=== PATIENT | female | born 1965 | race Caucasian/White ===

== ENCOUNTER 2020-04-27 14:56 | Outpatient (REF) | payer SELFPAY ==
[2020-04-27 15:48] LABS: SARS COV2 IgG Negative (Negative)
== END 2020-04-27 14:57 | disposition home or self-care (01) ==
LOC: HO.LNC 14:56
PROVIDERS: Visit Provider Pathology Anatomic Pathology & Clinical Pathology
DX: Z01.84 Encounter for antibody response examination (principal)
CPT/HCPCS: 86769

== ENCOUNTER 2020-10-01 01:55 | Day surgery (SDC) | payer OTHER, SELFPAY ==
[2020-10-01] VITALS (9 sets, daily range): BP systolic 120–140; BP diastolic 65–87; PULSE 60–80; RESP 15–17; TEMP 36.1–37; O2SAT 92–99; BMI 35.9
--- NOTE | ~2020-10-01 | CT_ITS ---
EXAMINATION: CT ABDOMEN AND PELVIS WITH CONTRAST CLINICAL INFORMATION: Right lower quadrant pain COMPARISON: None TECHNIQUE: Multidetector volumetric images were obtained from the superior aspect of the liver through the pubic symphysis following administration 85 mL of Omnipaque 350 intravenous contrast. Sagittal and coronal reformatted images were obtained on the technologist's workstation. Oral contrast: No This CT examination was performed using dose optimization techniques as appropriate, variously including the following: *Automated exposure control *Adjustment of mA and/or kV according to patient size (this includes techniques or standardized protocols for targeted exams where dose is matched to indication/reason for exam; i.e. extremities or head) *Use of iterative reconstruction technique DLP: 806 mGy-cm FINDINGS: LUNG BASES: The visualized lung bases are unremarkable. LIVER, GALLBLADDER, AND BILIARY TREE: The liver is normal in size, shape, and attenuation. No focal hepatic lesion or biliary ductal dilatation is present. The gallbladder is unremarkable with no evidence of radiopaque gallstones, gallbladder wall thickening, or obvious pericholecystic inflammatory changes. PANCREAS: Unremarkable. SPLEEN: Unremarkable. ADRENAL GLANDS: Unremarkable. KIDNEYS AND URETERS: The kidneys are normal in size, shape, and attenuation. No hydronephrosis, hydroureter, or obstructing calculi seen. No perinephric stranding. BLADDER: Unremarkable. GASTROINTESTINAL TRACT: No evidence of bowel obstruction. No significant bowel wall thickening is seen. The appendix is mildly dilated to 9 mm at the tip, and there is mild periappendiceal stranding. No free fluid or free air is seen. ABDOMINAL WALL: No significant hernia is appreciated. LYMPH NODES: Normal. VASCULAR: Mild scattered atherosclerotic calcifications. PELVIC VISCERA: The uterus is prominent in size, suspicious for underlying fibroids. OSSEOUS STRUCTURES: Unremarkable. CT/CT abdomen pelvis w con IMPRESSION: 1. Mildly dilated appendix with mild periappendiceal stranding, concerning for mild/early changes of acute appendicitis in the setting of right lower quadrant pain. 2. Prominent uterus likely secondary to fibroids, which could be further assessed with pelvic ultrasound.
--- NOTE | 2020-10-01 02:35 | ED_ITS ---
HPI - Abdominal Pain General Chief Complaint: Abdominal Pain Stated Complaint: Abdominal Pain Time Seen by Provider: 10/01/20 02:13 Source: patient Mode of arrival: ambulatory History of Present Illness HPI narrative: This is a 55-year-old female without significant past medical history who presents with 10 hours of right lower quadrant discomfort that she describes as sharp/crampy, nonradiating that has worsened throughout the day and is not improved despite taking multiple Gas-X pills. Patient denies any past surgical history in the abdomen, denies any fevers, chills but has been mildly nauseous and had decreased appetite. She had a regular bowel movement this morning and has continued to pass flatus and denies any urinary pain /burning/frequency. Pain increases with flexion at hips. Related Data Allergies Allergy/AdvReac Type Severity Reaction Status Date / Time No Known Allergies Allergy Mild NONE Unverified 01/12/20 16:21 ChloraPrep One Step Allergy Unknown Uncoded 03/16/17 00:00 Latex Gloves Allergy Unknown rash Uncoded 03/16/17 00:00 Review of Systems Review of Systems Pertinent positives and negatives as stated in HPI 10 point review of systems is otherwise negative. Physical Exam Vital Signs: Vital Signs: Last Vital Signs Temp 98.2 F 10/01/20 02:57 Pulse 76 10/01/20 02:57 Resp 16 10/01/20 02:57 BP 120/65 10/01/20 02:57 Pulse Ox 97 10/01/20 02:57 Body Mass Index 35.9 VITAL SIGNS: Reviewed. GENERAL: Well developed, well nourished, in no acute distress. HEAD: Normocephalic/atraumatic EYES: PERRLA, EOMI OROPHARYNX: no oral lesions noted, posterior pharynx clear NECK: Supple, no adenopathy LUNGS: Normal breath sounds, no wheeze/rhonchi/rales, no tachypnea CARDIOVASCULAR: Regular rate and rhythm without noted murmurs ABDOMEN: Soft, tenderness to palpation the right lower quadrant without rebound, McBurney's positive, non-distended with bowel sounds. MUSCULOSKELETAL: No tenderness, deformities, or effusions noted on gross inspection. SKIN: Inspection of the skin reveals no rashes NEUROLOGIC: Alert and oriented x 4. Course Course Course Narrative: This is a 55-year-old female with history and clinical presentation most consistent with appendicitis but will rule out renal colic, diverticulitis, UTI. Review of all investigations consistent with appendicitis, surgical services contacted, also of note CT scan findings of enlarged uterus which will require further investigations with ultrasound. MDM - Abdominal Pain Lab Data Result diagrams: 10/01/20 03:11 10/01/20 03:11 Labs: Lab Results 10/01/20 10/01/20 10/01/20 Range/Units 03:11 03:11 03:14 WBC 11.1 H (4.8-10.8) X10*3/uL RBC 3.86 L (4.20-5.50) X10*6/uL Hgb 11.4 L (12.0-16.0) g/dl Hct 34.7 L (37-47) % MCV 89.9 (80-98) fL MCH 29.5 (27.0-33.0) pg MCHC 32.9 (31.0-35.0) g/dl RDW 13.5 (11.0-16.0) % Plt Count 408 H (160-400) X10*3/uL MPV 9.9 (9.4-12.3) fL Immature Gran % (Auto) 0.3 (0.0-0.4) % Neut % (Auto) 69.1 (45-73) % Lymph % (Auto) 19.8 L (20-40) % [place] % (Auto) 8.7 (2-11) % Eos % (Auto) 1.5 (0-4) % Baso % (Auto) 0.6 (0-2) % Lymph # (Auto) 2.2 (1.2-4.9) X10*3/uL [place] # (Auto) 1.0 (0.1-1.2) X10*3/uL Eos # (Auto) 0.2 (0.0-0.4) X10*3/uL Baso # (Auto) 0.1 (0.0-0.2) X10*3/uL Abs Immat Gran (auto) 0.03 (0.00-0.03) X10*3/uL Absolute Neuts (auto) 7.7 (2.0-8.3) X10*3/uL Absolute Nucleated RBC 0.000 (0.0-0.012) X10*3/uL Nucleated RBC % (auto) 0.0 (0.0-0.2) /100WBC Sodium 141 (135-145) mmol/L Potassium 4.3 (3.3-5.1) mmol/L Chloride 108 (96-108) mmol/L Carbon Dioxide 25 (22-29) mmol/L Anion Gap 12 (12-20) BUN 11 (9-16) mg/dL Creatinine 0.84 (0.5-1.4) mg/dL Estim Creat Clear Calc 86.4 Estimated GFR > 60 Random Glucose 99 (60-115) mg/dL Calcium 9.4 (8.4-10.2) mg/dL Total Bilirubin 0.5 (0.0-1.0) mg/dL AST 9 (5-31) U/L ALT 7 (0-31) U/L Alkaline Phosphatase 89 (39-117) U/L Total Protein 6.8 (6.5-8.0) g/dL Albumin 4.2 (3.5-5.0) g/dL Lipase 20 (8-78) U/L Urine Color YELLOW Urine Appearance CLEAR Urine pH 6.0 (5.0-8.0) Ur Specific [place] 1.010 (1.005-1.025) Urine Protein NEG (NEG-TRACE) MG/DL Urine Glucose (UA) NEG (NEG) MG/DL Urine Ketones NEG (NEG) MG/DL Urine Blood 2+ H (NEG) Urine Nitrite NEG (NEG) Ur Leukocyte Esterase NEG (NEG) Urine RBC 0-2 (0) /HPF Urine WBC 0-2 (0-4) /HPF Ur Squamous Epith Cells TRACE /LPF Urine Bacteria NONE /LPF Discharge Plan Discharge Clinical Impression: Acute appendicitis Patient Disposition: Admitted As Inpatient [facility] Past Medical History Source: nursing notes reviewed Social History Social History Alcohol intake: never Patient Tobacco Use Status: Never used Tobacco Use of substances other than those prescribed or required for medical reasons: No Advance Directives: No Advance Directives Information Provided: Yes Patient : No
[2020-10-01 03:15] LABS: MANUAL DIFF FLAG NO
[2020-10-01 03:16] LABS: Basophils Absolute Auto 0.1 X10*3/uL (0.0-0.2); Basophils Percent Auto 0.6 % (0-2); Eosinophils Absolute Auto 0.2 X10*3/uL (0.0-0.4); Eosinophils Percent Auto 1.5 % (0-4); Hematocrit 34.7 % (37-47); Hemoglobin 11.4 g/dl (12.0-16.0); Imm Gran Abs Auto 0.03 X10*3/uL (0.00-0.03); Imm Gran Pct Auto 0.3 % (0.0-0.4); Lymphocytes Absolute Auto 2.2 X10*3/uL (1.2-4.9); Lymphocytes Percent Auto 19.8 % (20-40); Mean Corpuscular HGB Conc 32.9 g/dl (31.0-35.0); Mean Corpuscular Hemoglobin 29.5 pg (27.0-33.0); Mean Corpuscular Volume 89.9 fL (80-98); Mean Platelet Volume 9.9 fL (9.4-12.3); Monocytes Percent Auto 8.7 % (2-11); Neutrophils Absolute Auto 7.7 X10*3/uL (2.0-8.3); Neutrophils Percent Auto 69.1 % (45-73); Platelet Count 408 X10*3/uL (160-400); Red Blood Count 3.86 X10*6/uL (4.20-5.50); Red Cell Distribution Width 13.5 % (11.0-16.0); White Blood Count 11.1 X10*3/uL (4.8-10.8)
[2020-10-01] MEDS: 0.9 % Sodium Chloride 1,000 ML 999 ML IV (03:16)
[2020-10-01] MEDS: Ketorolac Tromethamine 15 MG/ML VIAL IVPUSH (03:16)
[2020-10-01 03:20] LABS: Appearance Urine CLEAR; Color Urine YELLOW; Glucose Urine UA NEG (NEG); Leukocyte Esterase Urine NEG (NEG); Nitrite Urine NEG (NEG); Urine Blood 2+ (NEG); Urine Ketones NEG (NEG); Urine Protein NEG (NEG-TRACE)
--- NOTE | 2020-10-01 03:24 | PC.NURSE ---
Iv access obtained to left ac. Labs drawn and sent, results pending. Iv fluids hung and running wo as charted per JUN. Pt denies pain at this time, medicated with iv toradol. Pt reports pain on movement. Skin wd, resp reg and even. Pt denies any other GI sx at this time.
[2020-10-01 03:27] LABS: RBC Urine 0-2 /HPF (0); Squamous Epithelial Cell Urine TRACE /LPF; WBC Urine 0-2 /HPF (0-4)
[2020-10-01 03:46] LABS: Alanine Aminotransferase 7 U/L (0-31); Albumin Level 4.2 g/dL (3.5-5.0); Alkaline Phosphatase 89 U/L (39-117); Anion Gap 12 (12-20); Aspartate Amino Transferase 9 U/L (5-31); Bilirubin Total 0.5 mg/dL (0.0-1.0); Blood Urea Nitrogen 11 mg/dL (9-16); Calcium 9.4 mg/dL (8.4-10.2); Carbon Dioxide 25 mmol/L (22-29); Chloride 108 mmol/L (96-108); Creatinine Clr Calc Pharmacy 86.4; Estimated Glomerular Filt Rate > 60; Glucose Random 99 mg/dL (60-115); Lipase 20 U/L (8-78); Potassium 4.3 mmol/L (3.3-5.1); Sodium 141 mmol/L (135-145); Total Protein 6.8 g/dL (6.5-8.0)
[2020-10-01] MEDS: iohexoL 350 MG/ML 100 ML INFUS..BTL 85 ML IV (04:13)
[2020-10-01 05:22] LABS: COVID-19 Test Negative (Negative); IDNOW Serial# 9DD0AD1C
[2020-10-01] MEDS: Piperacillin Sodium/Tazobactam 3.375 GM in 0.9 % Sodium Chloride 50 ML IV ×2 (06:07→12:52)
--- NOTE | 2020-10-01 09:34 | PC.NURSE ---
report to felix duron from day stay surgery, plan to pick pt up around 1130a.
--- NOTE | 2020-10-01 10:34 | HO.ANESPROP2 ---
[facility] Active Problems Active Problems: All Active Problems (Updated 10/01/20 @ 04:59 by Marianne Weber MD) Acute appendicitis (Acute) Past Medical History Medical History (Updated 10/01/20 @ 11:05 by Christina Borden MD) Anxiety Depression History of right breast cancer Family History Family History (Updated 10/01/20 @ 11:33 by Christina Borden MD) Mother Heart disease Stroke Father Skin cancer Brother No problems noted. Brother No problems noted. Brother No problems noted. Maternal Grandmother Breast cancer Paternal Grandmother Colon cancer Paternal Grandfather Heart disease Stroke Surgical History Surgical History (Updated 10/01/20 @ 11:05 by Christina Borden MD) H/O hand surgery History of tonsillectomy Status post right breast lumpectomy Social History Social History Alcohol intake: never Patient Tobacco Use Status: Never used Tobacco Meds Allergies Allergy/AdvReac Type Severity Reaction Status Date / Time ChloraPrep One Step Allergy Intermediate Rash Uncoded 10/01/20 11:05 Latex Gloves Allergy Unknown rash Uncoded 10/01/20 11:05 Active Medications: Current Medications Generic Name Dose Route Start Last Admin Trade Name Freq PRN Reason Stop Dose Admin Acetaminophen 650 mg 10/01/20 05:17 Acetaminophen 325 Mg Tablet PO Q4H PRN Fever Diphenhydramine HCl 25 mg 10/01/20 05:17 Diphenhydramine Hcl 25 Mg Tablet PO Q4H PRN itching Piperacillin Sod/Tazobactam 50 mls @ 100 mls/hr 10/01/20 05:30 10/01/20 06:07 Sod 3.375 gm/ Sodium Chloride IV 100 mls/hr Q6H HU Administration Sodium Chloride 1,000 mls @ 125 mls/hr 10/01/20 05:30 Ns IVCONT .Q8H HU Morphine Sulfate 2 mg 10/01/20 05:17 Morphine Sulfate 2 Mg/Ml Cartridge IVPUSH Q3H PRN Pain, Moderate (Pain Scale 4-6 Morphine Sulfate 4 mg 10/01/20 05:17 Morphine Sulfate 4 Mg/Ml Cartridge IVPUSH Q3H PRN Pain, Severe (Pain Scale 7-10) Ondansetron HCl 4 mg 10/01/20 05:17 Ondansetron Hcl 4 Mg/2 Ml Vial IVPUSH Q4H PRN Nausea Oxycodone HCl 5 mg 10/01/20 05:17 Oxycodone Hcl Immed Release 5 Mg Tablet PO Q3H PRN Pain, Moderate (Pain Scale 4-6 Oxycodone HCl 10 mg 10/01/20 05:17 Oxycodone Hcl Immed Release 5 Mg Tablet PO Q3H PRN Pain, Severe (Pain Scale 7-10) Sodium Chloride 3 ml 10/01/20 08:00 0.9 % Sodium Chloride Flush 3 Ml Syringe IVFLUSH [facility] Home Medications Medication Instructions Recorded Confirmed Last Taken Type ascorbic acid (vitamin C) [Vitamin 500 mg PO 2XW 10/01/20 10/01/20 09/27/20 History C] cholecalciferol (vitamin D3) 50 mcg PO DAILY 10/01/20 10/01/20 09/30/20 History [Vitamin D3] ferrous sulfate 27 mg PO 2XW 10/01/20 10/01/20 09/27/20 History loperamide 2 mg PO 2XW 10/01/20 10/01/20 09/27/20 History venlafaxine 25 mg PO DAILY 10/01/20 10/01/20 09/30/20 History venlafaxine 37.5 mg PO DAILY 10/01/20 10/01/20 09/30/20 History Exam Exam Date and Time: October 01, 2020 1034 Height,Weight and Vital Signs: Height 5 ft 4 in Weight 94.8 kg Last Vital Signs Temp 98.2 F 10/01/20 07:55 Pulse 69 10/01/20 07:55 Resp 16 10/01/20 07:55 BP 124/74 10/01/20 07:55 Pulse Ox 99 10/01/20 07:55 Pertinent Lab Results Pertinent Lab Results: Laboratory Tests 10/01/20 10/01/20 10/01/20 03:11 03:11 03:14 WBC 11.1 H RBC 3.86 L Hgb 11.4 L Hct 34.7 L MCV 89.9 MCH 29.5 MCHC 32.9 RDW 13.5 Plt Count 408 H MPV 9.9 Immature Gran % (Auto) 0.3 Neut % (Auto) 69.1 Lymph % (Auto) 19.8 L [place] % (Auto) 8.7 Eos % (Auto) 1.5 Baso % (Auto) 0.6 Lymph # (Auto) 2.2 [place] # (Auto) 1.0 Eos # (Auto) 0.2 Baso # (Auto) 0.1 Abs Immat Gran (auto) 0.03 Absolute Neuts (auto) 7.7 Absolute Nucleated RBC 0.000 Nucleated RBC % (auto) 0.0 Sodium 141 Potassium 4.3 Chloride 108 Carbon Dioxide 25 Anion Gap 12 BUN 11 Creatinine 0.84 Estim Creat Clear Calc 86.4 Estimated GFR > 60 Random Glucose 99 Calcium 9.4 Total Bilirubin 0.5 AST 9 ALT 7 Alkaline Phosphatase 89 Total Protein 6.8 Albumin 4.2 Lipase 20 Urine Color YELLOW Urine Appearance CLEAR Urine pH 6.0 Ur Specific [place] 1.010 Urine Protein NEG Urine Glucose (UA) NEG Urine Ketones NEG Urine Blood 2+ H Urine Nitrite NEG Ur Leukocyte Esterase NEG Urine RBC 0-2 Urine WBC 0-2 Ur Squamous Epith Cells TRACE Urine Bacteria NONE COVID-19 ([facility]ERT) COVID-19 [employer] Com 10/01/20 05:03 WBC RBC Hgb Hct MCV MCH MCHC RDW Plt Count MPV Immature Gran % (Auto) Neut % (Auto) Lymph % (Auto) [place] % (Auto) Eos % (Auto) Baso % (Auto) Lymph # (Auto) [place] # (Auto) Eos # (Auto) Baso # (Auto) Abs Immat Gran (auto) Absolute Neuts (auto) Absolute Nucleated RBC Nucleated RBC % (auto) Sodium Potassium Chloride Carbon Dioxide Anion Gap BUN Creatinine Estim Creat Clear Calc Estimated GFR Random Glucose Calcium Total Bilirubin AST ALT Alkaline Phosphatase Total Protein Albumin Lipase Urine Color Urine Appearance Urine pH Ur Specific [place] Urine Protein Urine Glucose (UA) Urine Ketones Urine Blood Urine Nitrite Ur Leukocyte Esterase Urine RBC Urine WBC Ur Squamous Epith Cells Urine Bacteria COVID-19 ([facility]) Negative COVID-19 Clin Com See Note Airway Mallampati Class: II (Caps lateral) TM Dist: >3cm Neck ROM: Full Heart: RRR Lungs: CTa Assessment and Plan Assessment Anesthesia Assessment: Anesthesia Plan Discussed and Chart Reviewed Final Anesthetic Review NPO: Yes ASA Class: II Final Preanesthetic Review: No Changes in Pt Med Stat and Consent Obtained/Reviewed Patient Risk: Intermediate Procedure Risk: Intermediate Anesthetic Plan Anesthetic Plan: GA Disposition: Standard PACU
--- NOTE | 2020-10-01 10:59 | P.HPGS_ITS ---
History of Present Illness History of Present Illness Date of Service: 10/01/20 Chief complaint: Abdominal Pain Narrative: Mone Manjarrez is a 55 year old female who was in her usual state health until around 11 a.m. yesterday morning when she developed an upset stomach with periumbilical discomfort. She reports that the pain localized to the right lower quadrant around 3 p.m. and was 8/10 on a pain scale at its worst. She denied any exacerbating or alleviating factors. Her last meal was yesterday afternoon at 4 p.m.. She denies any change in bowel habits, any urinary symptoms, fever, chills, shortness of breath, chest pain. She denies any history of pain of this sort previously. She reports her pain is now 1/10 after receiving pain medications. She denied any nausea or vomiting. Patient was evaluated in the emergency department and found to have white blood cell count of 11.1. She had a CT scan abdomen and pelvis that showed a mildly dilated appendix with mild periappendiceal stranding concerning for acute early appendicitis. Review of Systems Review of Systems: Yes all other systems are reviewed and are negative Constitutional: Constitutional: Denies chills, Denies daytime sleepiness, Denies difficulty sleeping, Denies excessive sweating, Reports fatigue, Denies fever(s), Denies headache(s), Denies night sweats, Reports snoring, Denies stops breathing during sleep and Denies weakness Eyes: Eyes: Denies blurry vision, Denies other visual disturbances and Reports requires corrective lenses ENT: Denies bleeding gums, Denies dysphagia, Denies dizziness, Denies headache(s), Denies hearing loss, Denies sinus pain and Denies sore throat Cardiovascular: Cardiovascular: Denies chest pain, Denies chest pain at rest, Denies chest pain with activity, Denies syncope, Denies irregular heart rhythm, Denies leg edema, Denies lightheadedness, Denies dyspnea, Denies dyspnea on exertion and Denies orthopnea Respiratory: Respiratory: Denies chest congestion, Denies cough, Denies dyspnea, Denies dyspnea on exertion, Reports snoring and Denies wheezing Gastrointestinal: Gastrointestinal: Denies abdominal pain, Denies melena, Denies bloating, Denies constipation, Denies dysphagia, Denies heartburn, Denies diarrhea, Denies nausea and Denies vomiting Genitourinary: Genitourinary: Denies hematuria, Denies nocturia and Denies nipple discharge Musculoskeletal: Musculoskeletal: Denies abnormal gait, Denies back pain, Denies deformity, Reports arthralgias, Denies joint swelling and Denies stiffness Integumentary/Breasts: Skin/Breast: Denies breast pain, Denies breast mass and Denies nipple discharge Neurologic: Denies abnormal gait, Denies dizziness, Denies syncope, Denies headache(s), Denies seizure-like activity and Denies weakness Psychiatric: Psychiatric: Denies abnormal sleep pattern, Reports anxiety, Reports depression and Denies panic attacks Endocrine: Endocrine: Denies excessive sweating, Reports fatigue, Denies heat intolerance, Denies polyphagia, Denies polydipsia and Denies polyuria Hematologic/Lymphatic: Hematologic/Lymphatic: Denies easy bleeding and Denies easy bruising Allergic/Immunologic: Allergic/Immunologic: Denies wheezing PMFSH Past Medical History Medical History (Updated 10/01/20 @ 11:05 by Christina Borden MD) Anxiety Depression History of right breast cancer Family History Family History (Updated 10/01/20 @ 11:33 by Christina Borden MD) Mother Heart disease Stroke Father Skin cancer Brother No problems noted. Brother No problems noted. Brother No problems noted. Maternal Grandmother Breast cancer Paternal Grandmother Colon cancer Paternal Grandfather Heart disease Stroke Surgical History Surgical History (Updated 10/01/20 @ 11:05 by Christina Borden MD) H/O hand surgery History of tonsillectomy Status post right breast lumpectomy Social History Social History Alcohol intake: never Patient Tobacco Use Status: Never used Tobacco Use of substances other than those prescribed or required for medical reasons: No Advance Directives: No Advance Directives Information Provided: Yes Patient : No Meds Allergies Allergy/AdvReac Type Severity Reaction Status Date / Time No Known Allergies Allergy Mild NONE Unverified 10/01/20 11:05 ChloraPrep One Step Allergy Intermediate Rash Uncoded 10/01/20 11:05 Latex Gloves Allergy Unknown rash Uncoded 10/01/20 11:05 Active Medications: Current Medications Generic Name Dose Route Start Last Admin Trade Name Freq PRN Reason Stop Dose Admin Acetaminophen 650 mg 10/01/20 05:17 Acetaminophen 325 Mg Tablet PO Q4H PRN Fever Diphenhydramine HCl 25 mg 10/01/20 05:17 Diphenhydramine Hcl 25 Mg Tablet PO Q4H PRN itching Piperacillin Sod/Tazobactam 50 mls @ 100 mls/hr 10/01/20 05:30 10/01/20 06:07 Sod 3.375 gm/ Sodium Chloride IV 100 mls/hr Q6H [facility] Administration Sodium Chloride 1,000 mls @ 125 mls/hr 10/01/20 05:30 Ns IVCONT .Q8H HU Morphine Sulfate 2 mg 10/01/20 05:17 Morphine Sulfate 2 Mg/Ml Cartridge IVPUSH Q3H PRN Pain, Moderate (Pain Scale 4-6 Morphine Sulfate 4 mg 10/01/20 05:17 Morphine Sulfate 4 Mg/Ml Cartridge IVPUSH Q3H PRN Pain, Severe (Pain Scale 7-10) Ondansetron HCl 4 mg 10/01/20 05:17 Ondansetron Hcl 4 Mg/2 Ml Vial IVPUSH Q4H PRN Nausea Oxycodone HCl 5 mg 10/01/20 05:17 Oxycodone Hcl Immed Release 5 Mg Tablet PO Q3H PRN Pain, Moderate (Pain Scale 4-6 Oxycodone HCl 10 mg 10/01/20 05:17 Oxycodone Hcl Immed Release 5 Mg Tablet PO Q3H PRN Pain, Severe (Pain Scale 7-10) Sodium Chloride 3 ml 10/01/20 08:00 0.9 % Sodium Chloride Flush 3 Ml Syringe IVFLUSH [facility] Home Medications Medication Instructions Recorded Confirmed Last Taken Type ascorbic acid (vitamin C) [Vitamin 500 mg PO 2XW 10/01/20 10/01/20 09/27/20 Hist ory C] cholecalciferol (vitamin D3) 50 mcg PO DAILY 10/01/20 10/01/20 09/30/20 History [Vitamin D3] ferrous sulfate 27 mg PO 2XW 10/01/20 10/01/20 09/27/20 History loperamide 2 mg PO 2XW 10/01/20 10/01/20 09/27/20 History venlafaxine 25 mg PO DAILY 10/01/20 10/01/20 09/30/20 History venlafaxine 37.5 mg PO DAILY 10/01/20 10/01/20 09/30/20 History Physical Exam Vital Signs: Vital Signs: Last Vital Signs Temp 98.2 F 10/01/20 07:55 Pulse 69 10/01/20 07:55 Resp 16 10/01/20 07:55 BP 124/74 10/01/20 07:55 Pulse Ox 99 10/01/20 07:55 Body Mass Index 35.9 Const: Other: Wearing glasses General: cooperative, healthy appearing, comfortable, no acute distress and well developed Nutritional Appearance: obese Orientation/consciousness: patient oriented x3 Limitations: no limitations HENMT: Head: Yes normal to inspection, Yes normocephalic and Yes atraumatic Mouth: oropharynx normal and moist mucous membranes Eyes: General: appearance normal, both eyes and all related structures Sclerae: sclerae normal EOM: EOMs intact bilaterally Neck: Neck: Yes normal visual inspection, Yes full ROM and Yes no lymphadenopathy Thyroid: Thyroid normal Chest: Chest palpation & inspection: normal inspection of the chest Resp: Effort & Inspection: normal respiratory effort and able to speak in complete sentences Auscultation: clear to auscultation bilaterally, no crackles, no rales, no rhonchi and no wheezes Cardio: Rate: regular rate Heart sounds: S1 normal heart sound present and S2 normal heart sound present GI: Other: Abdomen is obese, soft, mildly distended. There is tenderness to palpation in the suprapubic region and right lower quadrant with mild voluntary guarding. There is no rebound tenderness. Inspection: Yes obesity Palpation (GI): Soft to palpation, Tenderness to palpation present (GI), no guarding and no hernias Rectal Exam - Female: deferred Skin: General skin exam: no rashes or lesions noted and no jaundice Wounds: no wounds Hair: normal Nails: normal Neuro: General: patient oriented x3 Cranial nerves: Yes CN's II-XII intact bilaterally Cognition (Neuro): normal cognition Gait exam (Neuro): Normal gait present Extrem: General: Yes normal to inspection, Yes full ROM, Yes no clubbing, cyanosis or edema and Yes no calf tenderness Psych: Appearance: grossly normal Mental Status: mental status grossly normal Speech and movement: Normal speech and movement present Affect: normal affect Attitude: cooperative Thought process: Normal thought process present Thought content: Normal thought content present Insight: Good insight present (Psych) Judgement: Good judgement present (Psych) Results Results Labs: Short CBC 10/01/20 Range/Units 03:11 WBC 11.1 H (4.8-10.8) X10*3/uL Hgb 11.4 L (12.0-16.0) g/dl Hct 34.7 L (37-47) % Plt Count 408 H (160-400) X10*3/uL BMP 10/01/20 03:11 Sodium 141 Potassium 4.3 Chloride 108 Carbon Dioxide 25 BUN 11 Creatinine 0.84 Calcium 9.4 Liver Function 10/01/20 Range/Units 03:11 Total Bilirubin 0.5 (0.0-1.0) mg/dL AST 9 (5-31) U/L ALT 7 (0-31) U/L Alkaline Phosphatase 89 (39-117) U/L Albumin 4.2 (3.5-5.0) g/dL Urine 10/01/20 Range/Units 03:14 Urine Color YELLOW Urine Appearance CLEAR Urine pH 6.0 (5.0-8.0) Ur Specific [place] 1.010 (1.005-1.025) Urine Protein NEG (NEG-TRACE) MG/DL Urine Glucose (UA) NEG (NEG) MG/DL Assessment and Plan (1) Acute appendicitis: Status: Acute This is a 55-year-old lady who was previously healthy who developed relatively acute onset of periumbilical discomfort which localized to the right lower quadrant several hours later. Patient had a CT scan that shows inflammatory changes about the appendix and a slightly elevated white blood cell count. Patient has acute appendicitis given history physical exam radiologic studies and blood work. The patient will be taken to the operating room for laparoscopic possible open appendectomy. Risks benefits and alternatives were discussed with the patient and she agrees to proceed. Procedures Date of Service Date of Service: 10/01/20
--- NOTE | 2020-10-01 14:08 | P.BOP_ITS ---
Brief Operative Note Date of Service: 10/01/20 Pre-op diagnosis: Acute appendicitis Post-op diagnosis: same Procedure: Laparoscopic appendectomy Implants: covidien erasmo Surgeon: Christina Borden MD Anesthesia: GETA Was an Assistant Director Of Public Works used for this Procedure?: No Estimated blood loss (mL): 2 Pathology: other (Appendix) Condition: stable Disposition: PACU
--- NOTE | 2020-10-01 14:11 | P.OP_ITS ---
Operative Note Operative Note Date of Service: 10/01/20 Narrative: Patient was brought into the operating room, placed on operating room table in a supine position. General anesthesia was induced. The patient received 3.375 g of IV Zosyn preoperatively. Normal DVT prophylaxis was instit uted. Safety time-out was performed. The abdomen was prepped and draped in normal sterile fashion using ChloraPrep. Next a mixture of 1% lidocaine with epinephrine 0.25% Marcaine plain was used to anesthetize the planned incision site in the infraumbilical position. A number 11 scalpel used to make a 2 cm infraumbilical transverse surgical incision through which the subcutaneous tissues were dissected down to the level of the fascia. The fascia was grasped between 2 Amy clamps and entered for about 1 cm. A 11. Scalpel used to cut the fascia. A 0 Vicryl suture was placed on either side of the opened fascia. A finger was used to bluntly gain access to the intra-abdominal cavity. A 12 mm Kenny trocar was introduced into the abdomen and secured to the abdominal wall using sutures on the fascia. The abdominal cavity was insufflated to 15 mm of mercury. A 5 mm 30 degree laparoscopic was introduced abdomen and used to survey the abdominal cavity which was normal with the exception of a very large uterus. Two additional 5 mm ports were placed under direct vision, 1 in the suprapubic region and 1 in the left lower quadrant under direct vision. The patient was placed in Trendelenburg positioning with the left side tilted down. We visualized the cecum in the right lower quadrant as well as the appendix. We grasped the appendix and dissected it free from the surrounding tissues. We used the LigaSure device to dissect the mesoappendix down at the base of the appendix. We then used a 60 mm white load stapler to staple across the base of the appendix. We placed the appendix in an Endo-Catch bag and removed from the abdomen. We evaluated staple line at the cecum and it was in good condition there was evidence of any bleeding. There was no injury to any of the viscera. We then removed the 5 mm ports from the suprapubic region and the left lower quadrant under direct vision. There was no bleeding from these port sites. We desufflated the abdomen under direct vision and removed the last port and laparoscope. We reapproximated the fascial defect at the umbilicus using a [id number] 0 Vicryl suture and tied the original fascial sutures over that closure. There was no residual fascial defect. We reapproximated all skin incisions with a 4 0 Monocryl subcuticular stitch. We cleaned and dried the skin and applied Dermabond skin glue to all skin incisions. All counts were correct at the end of the case there were no complications. The patient was awake and in stable condition prior to extubation and transfer to recovery room.
--- NOTE | 2020-10-01 14:22 | PM.DS ---
DS: Providers Provider Date of Service: 10/01/20 Date of admission: 10/01/20 05:17 Date of discharge: 10/01/20 Primary care physician: Vicente Wick MD Admitting clinician: Christina Borden Attending physician on admission: Christina Borden Attending physician on discharge: Christina Borden Discharging clinician: Christina Borden DS: Diagnosis Discharge Diagnosis (1) Acute appendicitis: Status: Acute DS: Medications Discharge Medications Home Medications: Home Medications Medication Instructions Recorded Confirmed ascorbic acid (vitamin C) [Vitamin 500 mg PO 2XW 10/01/20 10/01/20 C] cholecalciferol (vitamin D3) 50 mcg PO DAILY 10/01/20 10/01/20 [Vitamin D3] ferrous sulfate 27 mg PO 2XW 10/01/20 10/01/20 loperamide 2 mg PO 2XW 10/01/20 10/01/20 venlafaxine 25 mg PO DAILY 10/01/20 10/01/20 venlafaxine 37.5 mg PO DAILY 10/01/20 10/01/20 Previous Rx's Medication Instructions Recorded acetaminophen 1,000 mg PO Q6H #60 tab 10/01/20 docusate sodium [Colace] 100 mg PO BID #30 cap 10/01/20 oxycodone 5 mg PO Q4H PRN 7 Days #20 tab 10/01/20 DS: Summary Hospital Course Hospital Course: This is a 55-year-old lady who was admitted to the emergency department for right lower quadrant abdominal pain that she began experiencing the day prior to presentation. Patient had sign symptoms and physical exam consistent with acute appendicitis. Patient underwent a CT scan abdomen and pelvis that showed inflamed appendix and periappendiceal fat stranding as well as an increased white blood cell count of 11.1. Patient was taken to the operating room for laparoscopic appendectomy that was uneventful. Patient tolerated procedure well was sent to recovery room. Patient was started on regular diet. Patient was able to tolerate the regular diet and had good pain control and was discharged home later that evening. Time Spent with Patient Time attestation: Total time spent providing and/or coordinating discharge services: Discharge coordination time: Less than 30 minutes Quality: Stroke Does the patient have a stroke diagnosis?: No Physical Exam Vital Signs: Vital Signs: Last Vital Signs Temp 98.6 F 10/01/20 13:56 Pulse 70 10/01/20 14:11 Resp 17 10/01/20 14:11 BP 137/83 10/01/20 14:11 Pulse Ox 96 10/01/20 14:11 Body Mass Index 35.9 DS: Data Data Completed and Pending Pending studies at discharge: Pending at discharge 10/01/20 13:32 Surgical [PTH] Routine Labs on day of discharge: Laboratory Results - last 24 hr 10/01/20 10/01/20 10/01/20 03:11 03:11 03:14 WBC 11.1 H RBC 3.86 L Hgb 11.4 L Hct 34.7 L MCV 89.9 MCH 29.5 MCHC 32.9 RDW 13.5 Plt Count 408 H MPV 9.9 Immature Gran % (Auto) 0.3 Neut % (Auto) 69.1 Lymph % (Auto) 19.8 L [place] % (Auto) 8.7 Eos % (Auto) 1.5 Baso % (Auto) 0.6 Lymph # (Auto) 2.2 [place] # (Auto) 1.0 Eos # (Auto) 0.2 Baso # (Auto) 0.1 Abs Immat Gran (auto) 0.03 Absolute Neuts (auto) 7.7 Absolute Nucleated RBC 0.000 Nucleated RBC % (auto) 0.0 Sodium 141 Potassium 4.3 Chloride 108 Carbon Dioxide 25 Anion Gap 12 BUN 11 Creatinine 0.84 Estim Creat Clear Calc 86.4 Estimated GFR > 60 Random Glucose 99 Calcium 9.4 Total Bilirubin 0.5 AST 9 ALT 7 Alkaline Phosphatase 89 Total Protein 6.8 Albumin 4.2 Lipase 20 Urine Color YELLOW Urine Appearance CLEAR Urine pH 6.0 Ur Specific [place] 1.010 Urine Protein NEG Urine Glucose (UA) NEG Urine Ketones NEG Urine Blood 2+ H Urine Nitrite NEG Ur Leukocyte Esterase NEG Urine RBC 0-2 Urine WBC 0-2 Ur Squamous Epith Cells TRACE Urine Bacteria NONE COVID-19 ([facility]) COVID-19 Clin Com 10/01/20 05:03 WBC RBC Hgb Hct MCV MCH MCHC RDW Plt Count MPV Immature Gran % (Auto) Neut % (Auto) Lymph % (Auto) [place] % (Auto) Eos % (Auto) Baso % (Auto) Lymph # (Auto) [place] # (Auto) Eos # (Auto) Baso # (Auto) Abs Immat Gran (auto) Absolute Neuts (auto) Absolute Nucleated RBC Nucleated RBC % (auto) Sodium Potassium Chloride Carbon Dioxide Anion Gap BUN Creatinine Estim Creat Clear Calc Estimated GFR Random Glucose Calcium Total Bilirubin AST ALT Alkaline Phosphatase Total Protein Albumin Lipase Urine Color Urine Appearance Urine pH Ur Specific [place] Urine Protein Urine Glucose (UA) Urine Ketones Urine Blood Urine Nitrite Ur Leukocyte Esterase Urine RBC Urine WBC Ur Squamous Epith Cells Urine Bacteria COVID-19 ([facility]) Negative COVID-19 Clin Com See Note Discharge Plan Discharge Patient Disposition: Home, Self-Care Discharge Diagnosis: Acute appendicitis Referrals: Vicente Wick MD [Primary Care Provider] - 1 Week Discharge Medications: New acetaminophen 500 mg tablet 1,000 mg PO Q6H Qty: 60 RF: 1 docusate sodium [Colace] 100 mg capsule 100 mg PO BID Qty: 30 RF: 1 oxycodone 5 mg tablet 5 mg PO Q4H PRN (Reason: pain) 7 Days Qty: 20 RF: 0 Continued venlafaxine 37.5 mg capsule,extended release 24hr 37.5 mg PO DAILY RF: 0 loperamide 2 mg Capsule 2 mg PO 2XW RF: 0 venlafaxine 25 mg tablet 25 mg PO DAILY RF: 0 ascorbic acid (vitamin C) [Vitamin C] 500 mg Tablet 500 mg PO 2XW RF: 0 ferrous sulfate 27 mg iron Tablet 27 mg PO 2XW RF: 0 cholecalciferol (vitamin D3) [Vitamin D3] 50 mcg (2,000 unit) Tablet 50 mcg PO DAILY RF: 0 Discharge Orders: Discharge Order (Routine); Ordered 10/01/20 Ordered By: Christina Borden Activity on Discharge: No heavy lifting Stand Alone Forms: Patient Portal Discharge page Activity Restrictions/Additional Instructions: Patient should avoid all heavy lifting greater than 5 lb for the next 2 weeks and all heavy lifting greater than 10 lb for a total of 4 weeks. Patient may shower but should avoid all hot tubs, baths, swimming pools. Patient should follow up with Dr. Borden in 2 weeks time frame and should call the office to schedule that follow-up appointment. The office number is [phone]. Patient should call Dr. Borden office with any questions or concerns such as increasing abdominal pain, fever, chills, shortness of breath, chest pain, leg pain or swelling, worsening nausea or vomiting. Patient she would use stool softener while she is taking oxycodone. If she does not have a bowel movement in 2 days following discharge she should use [id number] MiraLax on a daily basis to help produce a bowel movement or milk of magnesia. Care Plan Goals: Return to baseline health Health Concerns: Appendicitis Plan of Treatment: Appendectomy already performed Assessment: Status post appendectomy for treatment acute appendicitis patient doing well
--- NOTE | 2020-10-01 14:40 | MHC.CM.PN ---
PER REVIEW OF DOCUMENTATION, PATIENT IS FULLY INDEPENDENT WITH NO SERVICES IN THE HOME. PATIENT IS DISCHARGED HOME - SELF CARE AND CAN ARRANGE FOR HER OWN TRANSPORTATION HOME. RN AWARE OF PLAN.
== END 2020-10-01 15:11 | disposition admitted as inpatient to this hospital (09) ==
LOC: HO.ED 04:59 → HO.EDOVER 06:59 → HO.SSS 16:00
PROVIDERS: Surgery; PCP Internal Medicine; Visit Provider Student in an Organized Health Care Education/Training Program
PROC: 0DTJ4ZZ Resection of Appendix, Percutaneous Endoscopic Approach (ICD-10-PCS; CPT 44970; principal; 2020-10-01 12:30)
DX: K35.890 Other acute appendicitis without perforation or gangrene (principal); F32.9 Major depressive disorder, single episode, unspecified; Z20.822 Contact with and (suspected) exposure to COVID-19; Z79.899 Other long term (current) drug therapy; Z85.3 Personal history of malignant neoplasm of breast; Z91.040 Latex allergy status
CPT/HCPCS: 44970; 36415; 74177; 80053; 81001; 83690; 85025; 87635; 88304; 96361; 96374; 99285; J0330; J1100; J1885; J2250; J2405; J2543; J3010; Q9967

== ENCOUNTER → 2020-11-01 13:41 | Outpatient (BNVA) | payer OTHER, SELFPAY | PROVIDERS: PCP Internal Medicine; Visit Provider Surgery ==

== ENCOUNTER → 2021-11-29 11:02 | Outpatient (REF) | payer OTHER, SELFPAY ==
--- NOTE | 2021-11-29 11:06 | ECG_ITS ---
Test Reason : palpitations Blood Pressure : / mmHG Vent. Rate : 075 BPM Atrial Rate : 075 BPM P-R Int : 158 ms QRS Dur : 080 ms QT Int : 386 ms P-R-T Axes : 036 055 024 degrees QTc Int : 431 ms Normal sinus rhythm Normal ECG No previous ECGs available Referred By: Brittney Gomez Electronically Signed By:FARIDA PEREZ MD
== END ==
LOC: HO.CARD 11:02
PROVIDERS: PCP Internal Medicine; Visit Provider Physician Assistant
DX: R00.2 Palpitations (principal)
CPT/HCPCS: 93005

== ENCOUNTER 2023-12-08 15:29 | Outpatient (REF) | payer OTHER, SELFPAY | END 2023-12-08 15:30 | disposition home or self-care (01) | LOC: HO.SH 15:29 | PROVIDERS: Visit Provider Physician Assistant | DX: Z01.118 Encounter for examination of ears and hearing with other abnormal findings (principal); H93.293 Other abnormal auditory perceptions, bilateral | CPT/HCPCS: 92557 ==

== ENCOUNTER 2023-12-21 11:55 | Outpatient (REF) | payer OTHER, SELFPAY ==
[2023-12-21 13:14] LABS: Alanine Aminotransferase 23 U/L (0-31); Albumin Level 4.5 g/dL (3.5-5.0); Alkaline Phosphatase 112 U/L (39-117); Aspartate Amino Transferase 16 U/L (5-31); Bilirubin Direct 0.1 mg/dL (0.0-0.5); Bilirubin Total 0.3 mg/dL (0.0-1.0); Total Protein 7.5 g/dL (6.5-8.0)
[2023-12-21 17:02] LABS: CDiff Gene PCR NEGATIVE (Negative)
[2023-12-22 09:29] LABS: Immunoglobulin A 105 mg/dL (47-310)
[2023-12-22 18:18] LABS: Transglutaminase IgA <1.0 U/mL
== END 2023-12-21 11:56 | disposition home or self-care (01) ==
LOC: HO.LAB 11:55
PROVIDERS: PCP Internal Medicine; Visit Provider Nurse Practitioner
DX: R19.7 Diarrhea, unspecified (principal); R19.4 Change in bowel habit
CPT/HCPCS: 36415; 80076; 82784; 86364; 87493